=== PATIENT | female | born 1995 | race Caucasian/White ===

== ENCOUNTER 2017-10-12 07:30 | Inpatient (IN) | payer OTHER ==
--- NOTE | 2017-10-08 14:34 | PREOPHP ---
Date of Admission: 10/13/2017 A 22-year-old, 3, para 1, AB1, for repeat section. Full preoperative counseling con cerning procedure and possible complications, including infection, blood loss, anesthetic complicatio ns, injury to bladder, bowel, ureter, postoperative complications, clots in legs, pneumonia. The pat ient knows fully well this does not constitute all the possible problems that could occur during or f ollowing surgery. Family History: Mother and grandparents and an aunt with hypertension. A great grandmother with julia ast cancer. 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 She has been on vitamins. Had blood pressure issues with her first . None with this one. Physical Examination: HEENT: Clear. Pupils equal, round, and reactive to light and accommodation. Conjunctivae well perf used. No oral, lingual, or buccal lesions. Chest and Lungs: Clear. Heart: without murmurs, thrills, heaves, or rubs. Breasts: Not examined, but on previous visits, w ithout problems. Abdomen: Term size. Baby is vertex. Still very high in the pelvis and the cervix is fingertip. has been discussed and now has been declined. We will proceed repeat on Wednesday, wh ich would be a day before her expected due date 39 weeks 6 days. MIRANDA/NASIM Voice ID: [id number]
[2017-10-12 11:02] LABS: RPR Titer ND
[2017-10-12 11:07] LABS: Urine Appearance CLEAR; Urine Bilirubin NEGATIVE (NEG); Urine Blood NEGATIVE (NEG); Urine Color YELLOW; Urine Glucose NEGATIVE (NEG); Urine Protein NEGATIVE (NEG); Urine Specific Gravity 1.015 (1.005-1.030); Urine Urobilinogen 0.2 mg/dL (0.2-1.0)
[2017-10-12 11:10] LABS: Absolute Lymphocytes (CBC) 1.6 K/uL (0.7-4.9); Absolute Monocytes 0.7 K/uL (0.1-1.3); Absolute Neutrophil 8.3 K/uL (1.8-8.0); Basophils % 0.4 % (0-1.3); MCH 29.2 pg (27.0-35.0); MCV 87.4 fL (80-100); MPV 9.4 fL (7.6-11.3); Monocytes % 6.1 % (3.3-12.3); RBC Red Blood Cell Count 4.46 M/uL (3.86-4.86)
[2017-10-12 11:17] LABS: Protime INR 0.94
[2017-10-12 12:49] LABS: Urine Amorphous Sediment 1+ /HPF (NONE SEEN); Urine Bacteria <20 /HPF (<20); Urine Culture Reflex Order REFLEXED; Urine Mucus 1+ /HPF (NONE SEEN); Urine RBC <5 /HPF (NONE SEEN)
[2017-10-12 22:36] LABS: RPR (Rapid Plasma Reagin) NON-REACT (NON-REACT)
[2017-10-13] MEDS ORDERED: Ringers Lactate 1,000 ML IV PRN (05:01)
[2017-10-13] MEDS ORDERED: METOCLOPRAMIDE 10 MG/2mL INJ ONE (05:28)
[2017-10-13] MEDS ORDERED: NA CIT/CITRIC AC 30 ML ORAL UDC ONE (05:28)
[2017-10-13] MEDS ORDERED: CEFAZOLIN/SWI 2gm 2 GM/20 ML SYR ONE (05:28)
[2017-10-13 05:37] VITALS: BMI 36.0
[2017-10-13] MEDS ORDERED: Ringers Lactate 1,000 ML IV SCH (06:00)
[2017-10-13] MEDS ORDERED: HYDRALAZINE HCL 20 MG/ML VIAL ONE (06:45)
[2017-10-13] MEDS ORDERED: MORPHINE SULFATE/PF 1 MG/ML (10 ML AMP) ONE (07:02)
[2017-10-13] MEDS ORDERED: OXYTOCIN 10 UNIT/ML ML IV ONE (07:02)
[2017-10-13] MEDS ORDERED: EPHEDRINE SULF 50 MG/ML SYR ONE (07:02)
[2017-10-13] MEDS ORDERED: NS 0.9% VIAL 10 ML ONE (07:03)
[2017-10-13] MEDS ORDERED: CARBOPROST TROME 250 MCG/ML IM ONE (07:16)
--- NOTE | 2017-10-13 07:19 | PN ---
Salina Macias 3, para 1, 39 weeks 5 days, for repeat section. Full preoperative cou nseling has already been done in the office several times and again this morning. Of note though, bl ood pressure on admission was 148/84, and now it is in the 152/95 to 105 range. Reflexes are brisk b ut negative protein. The patient did have problems with her blood pressure first . Right n ow, I do not think she qualifies as preeclamptic. We will give her 5 mg of Apresoline, see how this affects her blood pressure. If blood pressures continue elevated, we will check another urine specim en, and of course, if it shows any protein, we will start her on magnesium sulfate. Right now, she i s under stress. Her had an abscess wisdom tooth and was in the emergency room last night. S he was up quite long time and is significantly nervous at this point, but blood pressures are elevate d enough to I think we will give her the Apresoline as stated, and see what happens thereafter. MIRANDA/NASIM Voice ID: [id number] Report ID: [id number]
[2017-10-13] MEDS ORDERED: ONDANSETRON HCL 40 MG/20 ML VIAL ONE (07:36)
[2017-10-13] MEDS ORDERED: Phenylephrine HCl 10 MG/ML 1 ML VIAL ONE (07:38)
[2017-10-13] MEDS ORDERED: MIDAZOLAM HCL 2 MG/2 ML INJ ONE (07:58)
[2017-10-13] MEDS ORDERED: KETOROLAC 30 MG/ML INJ IM PRN (08:23)
[2017-10-13] MEDS ORDERED: KETOROLAC 30 MG/ML INJ IV PRN (08:23)
[2017-10-13] MEDS ORDERED: Oxycodone HCl/Acetaminophen 1 TAB TAB PO PRN (08:23)
[2017-10-13] MEDS ORDERED: ONDANSETRON 4 MG (ODT) TAB PO PRN (08:23)
[2017-10-13] MEDS ORDERED: BISACODYL 10 MG RECTAL SUPP RECT PRN (08:23)
[2017-10-13] MEDS ORDERED: DIPHENHYDRAMINE 25 MG TAB/CAP PO PRN (08:23)
[2017-10-13] MEDS ORDERED: ACETAMINOPHEN 500 MG TAB PO PRN (08:23)
[2017-10-13] MEDS ORDERED: ONDANSETRON 4 MG/2 ML VIAL IV PRN (08:23)
[2017-10-13] MEDS ORDERED: Ringers Lactate 2,000 ML IV ONE (08:50)
[2017-10-13] MEDS ORDERED: OXYTOCIN/LR 20 UNIT/1,000 ML BAG IV SCH (09:00)
[2017-10-13] MEDS ORDERED: D5LR 1,000 ML with OXYTOCIN 20 UNIT IV SCH ×2 (09:00)
[2017-10-13] MEDS ORDERED: DIPHENHYDRAMINE 25 MG TAB/CAP ONE (10:56)
[2017-10-13] MEDS ORDERED: DIPHENHYDRAMINE 50 MG/ML VIAL ONE (10:58)
[2017-10-13] MEDS ORDERED: METOCLOPRAMIDE 10 MG/2mL INJ IV PRN (11:10)
[2017-10-13] MEDS ORDERED: DIPHENHYDRAMINE 50 MG/ML VIAL IV PRN (11:11)
[2017-10-13] MEDS ORDERED: NALOXONE 0.4 MG/ML VIAL IV PRN (11:11)
[2017-10-13] MEDS ORDERED: Rho(D) IG (HUMAN) 300 MCG SYR IM ONE (11:20)
[2017-10-13] MEDS: DIPHENHYDRAMINE 25 MG TAB/CAP PO ONE ×2 (13:50→21:10)
--- NOTE | 2017-10-13 15:25 | OP ---
Surgeon: Christopher Wright MD Anesthesiologist: Dr. Mccloud/Gina Arrington. Indications: A 22-year-old, 3 para 1 AB 1, 39 weeks 5 days, for repeat section. In fection, blood loss, anesthetic complications; injury to bladder, bowel, ureter; postoperative compli cations, clots in legs discussed. The patient knows fully well this does not constitute all the poss ible problems that could occur during or following surgery. Teletypewriter Operator Surgeon: Dr. Wright. Procedure In Detail: After spinal block anesthesia, patient prepped and draped in the sterile manner and placed in the dorsal supine position. Pfannenstiel incision was created. The incision was silva ied to the fascia. The fascia incised and incision carried transversely bilaterally. Anterior fasci al plane was developed with both blunt and sharp dissection. The underlying rectus muscle was separa bobby. Peritoneum elevated and entered. Low transverse uterine incision created. A 6 pounds, 10 ounc e female was delivered without difficulties. Apgars 9 and 9. Cord blood specimen was obtained. The placenta was removed manually. Uterus cleared of clot and blood and exteriorized. Cervical os was dilated with ring clamp. The uterus closed with a running-locked stitch of 1 chromic. Estimated blo od loss during the procedure 800 cc. Gutters were clear of clot and blood. Uterus was replaced in p eritoneal cavity. Inspection of suture line showed no further bleeding. Before entrance into the pe ritoneum, a single [id number] stitch had been placed in the right rectus muscle belly for hemost asis. Reinspection showed no further bleeding, and therefore, the fascia was closed with 1 Vicryl ru nning from either angle to the midline. Subcutaneous tissue was closed with 2-0 plain. Absorbable s taples placed and then metal marvin. The patient had been given 2 g of Ancef. Tolerated all proced ures well. Transferred back to her room in good condition. Final Diagnosis: Repeat section at 39 weeks 5 days, spinal block anesthesia. MIRANDA/NASIM Voice ID: [id number] Report ID: [id number]
[2017-10-13] MEDS ORDERED: CEFAZOLIN/SWI 1gm 1 GM/10 ML SYR IV ONE (16:00)
[2017-10-13] MEDS ORDERED: Ringers Lactate 1,000 ML IV ONE (18:25)
--- NOTE | 2017-10-14 07:17 | PN ---
The patient is doing quite well postoperatively, afebrile, may have already ambulated. Output is goo d. H and H with minimal change. The pruritus which she was having right after delivery has subsided . Full postoperative talk given. We will discontinue her Loza and IV this morning. If she continu es good progress, send her home tomorrow. Full dismissal instructions given but will go over it agai n tomorrow. Breast-feeding suggestions given. The baby has not breast-fed in the last 6 hours becau se she has been sleeping. The patient knows she needs a stimulate her breast with the pump and drink lots of fluids today. MIRANDA/NASIM Voice ID: [id number] Report ID: [id number]
[2017-10-14] MEDS: Oxycodone HCl/Acetaminophen 1 TAB TAB PO PRN ×2 (07:26→14:01)
[2017-10-14] MEDS ORDERED: CEPACOL LOZENGES PO PRN (07:32)
[2017-10-14] MEDS ORDERED: MAGNESIUM HYDROXIDE 8% 30 ML PO PRN (08:23)
[2017-10-14 13:31] LABS: HBsAG Nonreactive (Nonreactive)
[2017-10-14 15:25] VITALS: BP 143/80; TEMP 98.1
== END 2017-10-14 16:14 | disposition home or self-care (01) | DRG 765 ==
LOC: 2ND-WC 10-13 04:54
PROVIDERS: ADMIT Specialist; ATTEND Specialist
PROC: 10D00Z1 Extraction of Products of Conception, Low, Open Approach (ICD-10-PCS; principal; 2017-10-13 07:30)
DX: O34.211 Maternal care for low transverse scar from previous cesarean delivery (principal); O98.32 Other infections with a predominantly sexual mode of transmission complicating childbirth; A60.00 Herpesviral infection of urogenital system, unspecified; Z3A.39 39 weeks gestation of pregnancy; Z37.0 Single live birth
CPT/HCPCS: 36415; 81001; 85014; 85025; 85461; 85610; 85730; 86592; 86850; 86900; 86901; 87077; 87086; 87088; 87186; 87340; 88305; 88307; J0360; J0690; J2250; J2370; J2405; J2590; J2765; J2790